=== PATIENT | female | born 1975 | race Caucasian/White ===

== ENCOUNTER 2017-10-30 00:30 | Emergency (ER) | payer BC ==
[2017-10-30] MEDS ORDERED: LORAZEPAM INJ 2 MG/1 ML VIAL ONE (01:28)
[2017-10-30] MEDS ORDERED: LORAZEPAM INJ 2 MG/1 ML VIAL IV ONE (02:00)
[2017-10-30] MEDS ORDERED: NORMAL SALINE 1000 ML 1,000 ML IV ONE (02:00)
[2017-10-30] MEDS ORDERED: ASPIRIN 325 MG TABLET PO ONE (03:25)
--- NOTE | 2017-10-30 03:39 | ER Document Report ---
ED General - General Stated Complaint: TROUBLE BREATHING Time Seen by Provider: 10/30/17 03:23 Information source: Patient - HPI Notes: Patient is a 41-year-old white female presents to the emergency department with report of a history since being a child of having episodes of palpitations and tachycardia that would last up to 30 minutes at a time. The patient states some episodes seem to last only 1 minute. The patient reports that she has been under significant amount of stress for the last 4 days up in [place] at a convention and reports that at 1700 she had episode of palpitation with tachycardia similar to previous events, just it would not resolve itself. The patient was driving at the time of the onset, then she got on a plane from [place] and after landing came here for evaluation. She reports some dyspnea on exertion, but denies any chest pain or nausea or vomiting. She denies any drug use. She is a non-smoker and does not drink. No significant caffeine use. No significant weight loss or history of thyroid disease. Medications none no known drug allergies. Family history father had a heart attack in his 40s but is still alive in his 80s. Patient sister has a history of SVT and a previous ablation. Patient has not seen a wood machinist apprentice previously. Past Medical History - General Information source: Patient - Social History Smoking Status: Never Smoker Frequency of alcohol use: None Drug Abuse: None Lives with: Family Family History: Other. denies: COPD - Past Medical History Cardiac Medical History: Reports: None Pulmonary Medical History: Reports: None Review of Systems - Review of Systems Notes: REVIEW OF SYSTEMS: CONSTITUTIONAL : Denies fever, chills, or sweats. Denies recent illness. EENT: Denies eye, ear, throat, or mouth pain or symptoms. Denies nasal or sinus congestion or discharge. Denies throat, tongue, or mouth swelling or difficulty swallowing. CARDIOVASCULAR: Denies chest pain. Denies ankle edema. RESPIRATORY: Denies cough, cold, or chest congestion. Denies wheezing. GASTROINTESTINAL: Denies abdominal pain or distention. Denies nausea, vomiting , or diarrhea. Denies blood in vomitus, stools, or per rectum. Denies black, tarry stools. Denies constipation. GENITOURINARY: Denies difficulty urinating, painful urination, burning, frequency, blood in urine, or discharge. FEMALE GENITOURINARY: Denies vaginal bleeding, heavy or abnormal periods, irregular periods. Denies vaginal discharge or odor. MUSCULOSKELETAL: Denies back or neck pain or stiffness. Denies joint pain or swelling. No leg pain or swelling. SKIN: Denies rash, lesions or sores. HEMATOLOGIC : Denies easy bruising or bleeding. LYMPHATIC: Denies swollen, enlarged glands. NEUROLOGICAL: Denies confusion or altered mental status. Denies passing out or loss of consciousness. Denies dizziness or lightheadedness. Denies headache. Denies weakness or paralysis or loss of use of either side. Denies problems with gait or speech. Denies sensory loss, numbness, or tingling. Denies seizures. PSYCHIATRIC: Denies anxiety or stress. Denies depression, suicidal ideation, or homicidal ideation. ALL OTHER SYSTEMS REVIEWED AND NEGATIVE. Dictation was performed using [employer] voice recognition software Physical Exam - Vital signs Vitals: Temp Pulse Resp BP Pulse Ox 98.7 F 87 14 108/65 98 10/30/17 04:33 10/30/17 04:33 10/30/17 04:33 10/30/17 04:33 10/30/17 04:33 - Notes Notes: PHYSICAL EXAMINATION: GENERAL: Well-appearing, well-nourished and in no acute distress. HEAD: Atraumatic, normocephalic. EYES: Pupils equal round and reactive to light, extraocular movements intact, conjunctiva are normal. ENT: Nares patent, oropharynx clear without exudates. Moist mucous membranes. NECK: Normal range of motion, supple without lymphadenopathy LUNGS: Breath sounds clear to auscultation bilaterally and equal. No wheezes rales or rhonchi. HEART: Tachycardic with regular rate at 125 going up to 145 with the exam. ABDOMEN: Soft, nontender, nondistended abdomen. No guarding, no rebound. No masses appreciated. Female : deferred Musculoskeletal: Normal range of motion, no pitting or edema. No cyanosis. NEUROLOGICAL: Cranial nerves grossly intact. Normal speech, normal gait. Normal sensory, motor exams PSYCH: Normal mood, normal affect. SKIN: Warm, Dry, normal turgor, no rashes or lesions noted. Course - Re-evaluation Re-evalutation: 10/30/17 04:02 Initially the patient was tachycardic ranging from 100 up to 150 without discernible P waves. The rhythm was very regular but would increase when I entered the room. There were no discernable P waves noted. Patient was given Ativan and 1 L of normal saline bolus and the pulse rate still remained from 110-140, although there was no irregularity or or obvious evidence for atrial fibrillation noted, as the rate would vary gradually go up and down when the patient was engaged in conversation or moving around. The rhythm suddenly changed to normal sinus rhythm with a heart rate ranging from 70-90, and the patient reported complete resolution of symptoms. The regularity of the rhythm would fit more with a SVT, and the patient describes symptoms dating back into her childhood. It is notable that the patient's sister has also had SVT with an ablation. There is no evidence for thyroid irregularity or electrolyte imbalance or anemia or drug toxidrome or significant dehydration or or pneumonia or congestive heart failure. Patient will follow up with local wood machinist apprentice for echocardiogram and further evaluation. Patient's blood pressures have ranged from 102 systolic up to 125 systolic, and blood pressures overall are too low to support a beta-oscar at this current time. 10/30/17 06:08 - Vital Signs Vital signs: Temp Pulse Resp BP Pulse Ox 98.7 F 87 14 108/65 98 10/30/17 04:33 10/30/17 04:33 10/30/17 04:33 10/30/17 04:33 10/30/17 04:33 - Laboratory Result Diagrams: 10/30/17 01:20 10/30/17 01:20 Laboratory results interpreted by me: 10/30/17 10/30/17 10/30/17 01:20 01:20 01:20 WBC 12.0 H TSH 5.03 H Urine Ascorbic Acid 40 H - EKG Interpretation by Me Additional EKG results interpreted by me: 10/30/17 04:01 Initial EKG performed at 0039 as interpreted by me showed SVT with rapid ventricular response rate of 134. Unable to discern a definitive P-wave with the EKG. There is no old EKG available for comparison. After the patient converted 2 a normal sinus rhythm at 0 337 EKG repeat as interpreted by me showed normal sinus rhythm heart rate of 72. There is no gross evidence for acute GA or ischemia. There were normal intervals. No other significant abnormality identified. Discharge - Discharge Clinical Impression: FHx: SVT (supraventricular tachycardia) Clinical Impression: (Ruled Out): Tachycardia Condition: Stable Disposition: HOME, SELF-CARE Instructions: Sinus Tachycardia ([facility]) Additional Instructions: Limit any caffeine use. Drink plenty of fluids. Followup with Dr. Toscano for evaluation and echocardiogram. Take one baby aspirin 81 mg per day. Referrals: ELPIDIO SCHAEFFER DO [Primary Care Provider] - Follow up as needed ALEXIS TOSCANO MD [EMERITUS] - 11/01/17
[2017-10-30 04:33] VITALS: BP 108/65
[2017-10-30 04:49] LABS: ABSOLUTE BASOPHILS # (AUTO) 0.1 10^3/uL (0.0-0.2); ABSOLUTE EOSINOPHILS # (AUTO) 0.2 10^3/uL (0.0-0.6); ABSOLUTE LYMPHOCYTES (AUTO) 3.3 10^3/uL (0.5-4.7); ABSOLUTE MONOCYTES (AUTO) 1.4 10^3/uL (0.1-1.4); BASOPHILS % (AUTO) 0.4 % (0-2); EOSINOPHILS % (AUTO) 1.9 % (0-6); HEMATOCRIT 40.8 % (36.0-47.0); HEMOGLOBIN 13.7 g/dL (12.0-15.5); LYMPHOCYTES % (AUTO) 27.4 % (13-45); MEAN CORPUSCULAR HEMOGLOBIN 29.1 pg (27.0-33.4); MEAN CORPUSCULAR HGB CONC 33.6 g/dL (32.0-36.0); MEAN CORPUSCULAR VOLUME 87 fl (80-97); MONOCYTES % (AUTO) 11.6 % (3-13); PLATELET COUNT 250 10^3/uL (150-450); RED BLOOD COUNT 4.69 10^6/uL (3.72-5.28); RED CELL DISTRIBUTION WIDTH 13.3 % (11.5-14.0); SEGMENTED NEUTROPHILS % (AUTO) 58.7 % (42-78); TOTAL CELLS COUNTED % (AUTO) 100 %
[2017-10-30 04:55] LABS: APPEARANCE,URINE CLEAR; BILIRUBIN,URINE NEGATIVE (NEGATIVE); COLOR,URINE STRAW; GLUCOSE, URINE NEGATIVE (NEGATIVE); KETONES,URINE NEGATIVE (NEGATIVE); NITRITE,URINE NEGATIVE (NEGATIVE); PROTEIN,URINE NEGATIVE (NEGATIVE); URINE SPECIFIC GRAVITY 1.011; UROBILINOGEN,URINE NEGATIVE mg/dL (<2.0)
[2017-10-30 04:56] LABS: LEUKOCYTE ESTERASE,URINE NEGATIVE (NEGATIVE)
--- NOTE | 2017-10-30 05:01 | RADIOLOGY REPORT (SQ) ---
EXAM DESCRIPTION: CHEST PA/LATERAL CLINICAL HISTORY: 41 years, Female, Cough COMPARISON: None. NUMBER OF VIEWS:2 FINDINGS: Increased lung volume, clear parenchyma, normal cardiac silhouette, and intact bony thorax. IMPRESSION: No acute cardiopulmonary findings.
[2017-10-30 05:29] LABS: FREE T4 (FREE THYROXINE) 1.19 ng/dL (0.78-2.19); THYROID STIMULATING HORMONE 5.03 uIU/mL (0.47-4.68)
[2017-10-30 05:30] LABS: ALANINE AMINOTRANSFERASE 25 U/L (9-52); ALBUMIN 4.2 g/dL (3.5-5.0); ALKALINE PHOSPHATASE 39 U/L (38-126); ANION GAP 9 (5-19); ASPARTATE AMINO TRANSFERASE 23 U/L (14-36); BILIRUBIN,DIRECT 0.1 mg/dL (0.0-0.4); BILIRUBIN,TOTAL 0.3 mg/dL (0.2-1.3); BLOOD UREA NITROGEN 19 mg/dL (7-20); CALCIUM 9.5 mg/dL (8.4-10.2); CARBON DIOXIDE 26 mmol/L (22-30); CHLORIDE 107 mmol/L (98-107); GLUCOSE 100 mg/dL (75-110); POTASSIUM 4.6 mmol/L (3.6-5.0); SODIUM 142.3 mmol/L (137-145); TOTAL PROTEIN 6.9 g/dL (6.3-8.2); URINE AMPHETAMINES SCREEN NEGATIVE; URINE BARBITURATES SCREEN NEGATIVE; URINE BENZODIAZEPINES SCREEN NEGATIVE; URINE COCAINE SCREEN NEGATIVE; URINE MARIJUANA (THC) SCREEN NEGATIVE; URINE METHADONE SCREEN NEGATIVE; URINE PHENCYCLIDINE SCREEN NEGATIVE
--- NOTE | 2017-10-30 09:26 | EKG REPORT ---
SEVERITY:- BORDERLINE ECG - SINUS RHYTHM RIGHT AXIS DEVIATION NONSPECIFIC ST-T CHANGES ANTEROSEPTAL LEADS : Confirmed by: Kiran Romero MD 30-Oct-2017 09:25:35
--- NOTE | 2017-10-30 09:26 | EKG REPORT ---
SEVERITY:- ABNORMAL ECG - JUNCTIONAL TACHYCARDIA RIGHT AXIS DEVIATION : Confirmed by: Kiran Romero MD 30-Oct-2017 09:25:53
== END 2017-10-30 04:33 | disposition home or self-care (01) ==
LOC: ER 00:30
DX: I47.1 Supraventricular tachycardia (principal); R06.00 Dyspnea, unspecified
CPT/HCPCS: 71046; 80053; 80307; 81001; 81025; 83735; 84439; 84443; 84484; 85025; 85379; 93005; 93010; 96361; 96374; 99285